=== PATIENT | female | born 1975 | race African-American/Black ===

== ENCOUNTER 2017-02-13 18:43 | Emergency (ER) | payer OTHER ==
[2017-02-13] MEDS ORDERED: IBUPROFEN 800 MG TABLET PO ONE (19:28)
[2017-02-13] MEDS ORDERED: DIAZEPAM 5 MG TABLET PO ONE (19:28)
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
[2017-02-13 20:35] VITALS: BP 164/90
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
== END 2017-02-13 20:33 | disposition home or self-care (01) ==
LOC: ER 18:43
DX: S16.1XXA Strain of muscle, fascia and tendon at neck level, initial encounter (principal); M54.2 Cervicalgia; M25.512 Pain in left shoulder; V87.7XXA Person injured in collision between other specified motor vehicles (traffic), initial encounter
CPT/HCPCS: 72050; 99283